=== PATIENT | male | born 1965 | race Caucasian/White ===

== ENCOUNTER 2023-12-30 11:25 | Emergency (ER) | payer MEDICAID, OTHER ==
[~2023-12-30] VITALS: Ht 172.7 cm; Wt 60.0 kg
[2023-12-30 11:48] VITALS: BP 100/66; RESP 18; TEMP 98.7; O2SAT 99
[2023-12-30 11:52] VITALS: PULSE 99
[2023-12-30 12:42] LABS: HEMOGLOBIN. 14.6 g/dL (14.0-18.0); LYMPHOCYTES % 29.7 % (20.0-50.0); MEAN CORPUSCULAR HEMOGLOBIN 28.3 pg (28.0-32.0); MEAN CORPUSCULAR HGB CONC 33.3 g/dL (31.0-37.0); MEAN CORPUSCULAR VOLUME 85.1 fL (80.0-94.0); MONOCYTES % 7.2 % (2.0-8.0); NEUTROPHILS % 59.1 % (40.0-76.0); PLATELET 203 x1000/uL (130-400); RED BLOOD CELL COUNT 5.16 mill/uL (4.7-6.1); RED CELL DISTRIBUTION WIDTH 13.3 % (11.6-14.6); WHITE BLOOD COUNT 5.6 x1000/uL (4.5-11.0)
[2023-12-30 12:47] LABS: CHLORIDE 102 mEq/L (98-107); POTASSIUM 4.7 mEq/L (3.5-5.1); SODIUM 135 mEq/L (136-145)
[2023-12-30 12:48] LABS: CALCIUM 9.7 mg/dL (8.7-10.4); CARBON DIOXIDE 30 mEq/L (21-32)
[2023-12-30 12:53] LABS: GLUCOSE 398 mg/dL (70-105); UREA NITROGEN BLOOD 13 mg/dL (9-23)
[2023-12-30] MEDS ORDERED: ACET-2708 PO (13:34)
[2023-12-30] MEDS ORDERED: AMOX1TAB16 MT (13:34)
[2023-12-30] MEDS ORDERED: GUAI118L49 PO (13:34)
[2023-12-30] MEDS ORDERED: ALBU18HF2 IH (13:34)
== END 2023-12-30 13:46 | disposition home or self-care (01) ==
LOC: ER 11:25
DX: J20.9 Acute bronchitis, unspecified (principal); E11.65 Type 2 diabetes mellitus with hyperglycemia
CPT/HCPCS: 36415; 71045; 80048; 85025; 99284